=== PATIENT | male | born 1945 | race Caucasian/White ===

== ENCOUNTER → 2017-05-05 | Outpatient (CLI) | payer MEDICARE | LOC: RAD 06:58 | DX: Z13.6 Encounter for screening for cardiovascular disorders (principal) ==

== ENCOUNTER → 2018-01-17 | Outpatient (CLI) | payer MEDICARE | LOC: RAD 08:30 | DX: R74.0 Nonspecific elevation of levels of transaminase and lactic acid dehydrogenase [LDH] (principal) ==

== ENCOUNTER → 2018-07-26 | Day surgery (SDC) | payer MEDICARE | LOC: MSO 08:30 | DX: Z12.11 Encounter for screening for malignant neoplasm of colon (principal); K57.30 Diverticulosis of large intestine without perforation or abscess without bleeding; K22.2 Esophageal obstruction; Z95.1 Presence of aortocoronary bypass graft; Z80.0 Family history of malignant neoplasm of digestive organs; R13.10 Dysphagia, unspecified; Z79.82 Long term (current) use of aspirin; I10 Essential (primary) hypertension; I25.10 Atherosclerotic heart disease of native coronary artery without angina pectoris | CPT/HCPCS: 00813; C1769; J2704; J7120 ==

== ENCOUNTER → 2018-09-20 | Outpatient (CLI) | payer MEDICARE | LOC: LAB 08:00 | PROVIDERS: Student in an Organized Health Care Education/Training Program | DX: H91.8X1 Other specified hearing loss, right ear (principal) ==

== ENCOUNTER → 2018-09-21 | Outpatient (CLI) | payer MEDICARE | LOC: RAD 09:27 | DX: I67.82 Cerebral ischemia (principal); I63.89 Other cerebral infarction; E87.8 Other disorders of electrolyte and fluid balance, not elsewhere classified; G31.9 Degenerative disease of nervous system, unspecified; H91.8X1 Other specified hearing loss, right ear ==

== ENCOUNTER → 2018-11-30 | Day surgery (SDC) | payer MEDICARE | LOC: MSO 11:46 | DX: H25.11 Age-related nuclear cataract, right eye (principal); E78.00 Pure hypercholesterolemia, unspecified; I25.2 Old myocardial infarction; I25.10 Atherosclerotic heart disease of native coronary artery without angina pectoris; I10 Essential (primary) hypertension; Z79.899 Other long term (current) drug therapy; Z79.82 Long term (current) use of aspirin | CPT/HCPCS: 00142; J0171; J2250; J3010; V2632 ==

== ENCOUNTER → 2018-12-28 | Day surgery (SDC) | payer MEDICARE | END | disposition home or self-care (01) | LOC: MSO 08:00 | DX: H25.12 Age-related nuclear cataract, left eye (principal); I10 Essential (primary) hypertension; E78.00 Pure hypercholesterolemia, unspecified; Z79.899 Other long term (current) drug therapy; Z79.82 Long term (current) use of aspirin; Z87.891 Personal history of nicotine dependence; E07.9 Disorder of thyroid, unspecified | CPT/HCPCS: 00142; J0171; J2250; V2632 ==

== ENCOUNTER → 2019-10-30 | Outpatient (CLI) | payer MEDICARE ==
[2019-10-30 08:21] LABS: POTASSIUM 4.8 mmol/L (3.5-5.1)
== END ==
LOC: LAB 07:58
PROVIDERS: Internal Medicine
DX: E78.5 Hyperlipidemia, unspecified (principal)